=== PATIENT | male | born 1985 | race Caucasian/White ===

== ENCOUNTER → 2020-06-20 08:41 | Outpatient (BNVA) | payer SELFPAY | PROVIDERS: Visit Provider Internal Medicine | DX: T54.3X1A Toxic effect of corrosive alkalis and alkali-like substances, accidental (unintentional), initial encounter (principal); X58.XXXA Exposure to other specified factors, initial encounter | CPT/HCPCS: 99203 ==

== ENCOUNTER 2020-06-20 09:37 | Emergency (ER) | payer SELFPAY ==
--- NOTE | ~2020-06-20 | XR_ITS ---
EXAMINATION: XR CHEST CLINICAL INFORMATION: Shortness of breath COMPARISON: None TECHNIQUE: 2 views of the chest were obtained. FINDINGS: No significant abnormality is noted involving the heart, lungs, mediastinum, bony thorax or soft tissues. XR/XR chest 2V IMPRESSION: Unremarkable examination.
[2020-06-20 10:14] VITALS: BP 140/97; PULSE 90; RESP 16; TEMP 37.4; O2SAT 96; BMI 34.9
--- NOTE | 2020-06-20 10:20 | ED.GENADULT ---
HPI - General Adult General Chief complaint: General Medical Stated complaint: CHEMICAL REACTION WORK RELATED Time Seen by Provider: 06/20/20 10:15 Source: patient Limitations: no limitations History of Present Illness HPI narrative: Patient presents to the ER complaining of cough shortness of breath. Patient states on Tuesday he was exposed to sodium hydroxide at his work. Patient has had intermittent cough since that exposure with some runny nose and tearing eyes. Patient also has had some symptoms of nausea. No vomiting at this time. Patient denies tobacco use. Patient is not been vaccinated for COVID-19. Patient states he does not smoke tobacco. Takes no current medications no other complaints this time. Related Data Allergies Allergy/AdvReac Type Severity Reaction Status Date / Time No Known Allergies Allergy Unverified 10/25/19 15:48 [No Known Allergies*] Review of Systems Constitutional: Constitutional: Denies chills, Reports fatigue, Denies fever(s), Reports malaise and Denies weakness Eyes: Eyes: Reports itchy eyes ENT: Denies dizziness, Reports nasal congestion, Reports nasal discharge, Denies sore throat, Denies throat swelling and Denies tongue swelling Cardiovascular: Cardiovascular: Denies chest pain, Denies chest pain with activity and Reports dyspnea Respiratory: Respiratory: Reports cough, Reports dyspnea and Denies stridor Gastrointestinal: Gastrointestinal: Denies diarrhea, Reports nausea and Denies vomiting Musculoskeletal: Musculoskeletal: Denies back pain Integumentary/Breasts: Skin/Breast: Denies rash Neurologic: Denies confusion, Denies dizziness and Denies weakness Psychiatric: Psychiatric: Denies confusion Endocrine: Endocrine: Reports fatigue Hematologic/Lymphatic: Hematologic/Lymphatic: Denies easy bruising Allergic/Immunologic: Allergic/Immunologic: Reports itchy eyes, Denies throat swelling and Denies tongue swelling PMFSH Past Medical History Attestation statement: The following information was validated with the patient. Medical History No known health problems Social History Social History Smoked in Last 30 Days: No Use of substances other than those prescribed or required for medical reasons: No Advance Directives: No Advance Directives Information Provided: No Physical Exam Vital Signs: Vital Signs: Last Vital Signs Temp 99.4 F 06/20/20 10:14 Pulse 90 06/20/20 10:14 Resp 16 05/14/21 10:14 BP 140/97 H 06/20/20 10:14 Pulse Ox 96 06/20/20 10:14 Body Mass Index 34.9 vital signs have been reviewed as normal and appeared to be correct. Blood pressure normal. Heart rate normal. Respiration rate normal. Temperature normal. Oxygen saturation normal. Appearance: Alert. Oriented X3. No acute distress. Head: Normal external exam. Normocephalic. Atraumatic. Eyes: PERRLA. EOMI. Conjunctiva and sclera normal. Eyelids normal. Red reflex present ENT: Pharynx normal. Uvula midline. Neck: Soft full range of motion, no stridor CVS: Heart regular rate and rhythm no murmurs and rubs Respiratory: Breath sounds are clear to auscultation bilaterally. No accessory muscle use noted. Abdomen: Soft nontender no rebound or guarding positive bowel sounds Skin: Skin warm and dry. Normal skin color. Extremities: No lower extremity edema. Extremities exhibit normal range of motion. Extremities nontender. Bilateral calves nontender Neuro: Oriented X 3. No motor deficit. No sensory deficit. Reflexes normal. Const: General: No confusion Orientation/consciousness: No confusion Neuro: General: No confusion Course Course Course Narrative: Differential diagnosis: Pneumonitis Inhalation injury Viral syndrome COVID-19 COVID-19 screening Pneumonia Patient had the inhalation exposure 4 days prior on Tuesday was wearing a cloth mask at that time. Chest x-ray pending COVID-19 rapid id also pending 10:46 a.m. Rapid COVID-19 test is positive for COVID-19 patient instructed to continue to self quarantine for 14 days. Increase fluids rest Patient's room air O2 sats are anywhere from 95-97% Medical Decision Making Lab Data Labs: Lab Results 06/20/20 Range/Units 10:30 COVID-19 (RACHAEL) Positive A (Negative) COVID-19 Clin Com See Note Imaging Data Chest x-ray: Radiologist's impression: [address] [id number] ReportSigned Patient: Eyal BainMR#: [id number]: [id number]:[id number]/Sex: 35 / MADM Date: 06/20/20Loc: HO.EDAttending Dr: Ordering Physician: Dago Brewster Date of Service: 06/20/20 Procedure(s): XR chest 2V Accession Number(s): [id number] cc: Dago Brewster ~ EXAMINATION: XR CHEST CLINICAL INFORMATION: Shortness of breath COMPARISON: None TECHNIQUE: 2 views of the chest were obtained. FINDINGS: No significant abnormality is noted involving the heart, lungs, mediastinum, bony thorax or soft tissues. XR/XR chest 2V IMPRESSION: Unremarkable examination. Dictated By:JEVON BUSH MDSigned By:<Electronically signed by JEVON BUSH MD in [place]>06/20/20 1030 DD/ 1015TD/TT: Director Embalmer: JULIO Discharge Plan Discharge Clinical Impression: COVID-19 Patient Disposition: Home, Self-Care Instructions: COVID-19 (Coronavirus Disease 2019) (ED) Additional Instructions: Increase fluids rest Tylenol Motrin for fever And body aches Your chest x-ray is negative at this time You show no signs of hypoxia at this time which is low oxygenation
[2020-06-20 10:42] LABS: COVID-19 Test Positive (Negative); IDNOW Serial# 08D9AD1C
== END 2020-06-20 11:02 | disposition home or self-care (01) ==
PROVIDERS: Physician Assistant; Emergency Provider Emergency Medicine
DX: U07.1 COVID-19 (principal); R05 Cough
CPT/HCPCS: 36415; 71046; 87635; 99283